=== PATIENT | male | born 1955 | race Caucasian/White ===

== ENCOUNTER 2023-06-28 09:52 | Outpatient (AMB) | payer MEDICARE, SELFPAY ==
--- NOTE | 2023-06-28 09:51 | AM.OFFWIN_ITS ---
Intake Vital Signs 3 06/28/23 09:54 Height 5 ft 4 in Weight 160 lb BMI 27.5 BP 120/80 Blood Pressure Location Lt brachial Position Sitting Pulse 84 Pulse Source Pulse Oximeter Temp 97.3 F Temp Source Temporal Artery Scan Pulse Oximetry (%) 98 Oxygen Delivery Method Room Air Intake Visit Reasons: [employer] Rash on both hips Intake Note: pt is here today for rash on both hips started 1 2 weeks ago Patient Tobacco Use Status: Never used Tobacco Allergies No Known Allergies Allergy (Verified 06/28/23 09:56) Do you need a note to return to daycare/school/sports/work: No HPI HPI Comments 2 History of Present Illness0 Details 68 y/o male patient who presents to walk in clinic with c/o Red itchy rash on both of his hips for more than 1 week now. Reports that rash was very itchy in the beginning, but now better. Denies tingling or burning sensation around the skin. He has been using OTC cream for itching with good relief. PFSH Social History Patient Tobacco Use Status: Never used Tobacco Physical Exam Vital Signs: Last Vital Signs Temp 97.3 F 06/28/23 09:54 Pulse 84 06/28/23 09:54 BP 120/80 06/28/23 09:54 Pulse Ox 98 06/28/23 09:54 Oxygen Delivery Method Room Air 06/28/23 09:54 BMI result Body Mass Index 27.5 Const General: comfortable and no acute distress Orientation/consciousness: patient oriented x3 Skin Other: Small red round and raised rash, dry and non-tender. General skin exam: erythema Rashes: rashes noted Neuro General: patient oriented x3, gait normal and moves all extremities Extrem Upper/lower leg/hip images: 2 1. Small round red bumps, dry skin with raised edges. 2. Small round red bumps, dry skin with raised edges Psych Speech and movement: Normal speech and movement present Assessment & Plan Assessment & Plan (1) Rash and nonspecific skin eruption: Code(s): R21 - Rash and other nonspecific skin eruption Plan: - Apply medication as directed. - Not clear of the etiology - Contact Dermatitis vs eczema vs fungal vs Shingles. - Pt uptodate with Shingrix vaccine Medications: New 2 triamcinolone acetonide 0.1% 1 appl topical BID 7 days 15 grams 0RF RASH R21 - Rash and other nonspecific skin eruption Coding Level of Care Code New Pt Level 3 (41861) Diagnoses Rash and nonspecific skin eruption R21 Time Spent (min) 15
[2023-06-28 09:54] VITALS: BP 120/80; PULSE 84; TEMP 36.3; O2SAT 98; BMI 27.5
== END 2023-06-28 10:41 | disposition home or self-care (01) ==
PROVIDERS: PCP Internal Medicine; Visit Provider Nurse Practitioner Family
DX: R21 Rash and other nonspecific skin eruption (principal)
CPT/HCPCS: 99203